=== PATIENT | male | born 1985 | race Caucasian/White ===

== ENCOUNTER → 2019-11-04 09:07 | Outpatient (CLI) | payer OTHER, SELFPAY ==
--- NOTE | 2019-11-04 | DI.MRI.S_ITS ---
PROCEDURE: MR LUMBAR SPINE WO CON INDICATIONS: Low back pain TECHNIQUE: Noncontrast sagittal T1 spin echo and T2 fast echo, sagittal STIR, axial T1 and T2 fast spin echo through the lumbar spine. In cases with scoliosis, additional coronal T2 fast spin echo may be performed. COMPARISON: [facility], MR, LUMBAR SPINE W/O CONTRAST, 01/12/2015, 10:48. [facility], CR, XR LUMBAR SPINE FLEXION EXTENSION, 10/21/2019, 9:28. FINDINGS: Image quality: Excellent. Alignment and Curvature: 5 lumbar type vertebral bodies are present by plain film. There is normal bony alignment. Bone Marrow: Marrow is of normal overall signal. No acute vertebral body compression fractures. Spinal Cord: Conus medullaris terminates at the L1-L2 disc space level. Visualized cord demonstrates normal signal and size. Paraspinous Soft Tissues: No paravertebral masses. L1-L2: Normal appearance. L2-L3: Normal appearance. L3-L4: Normal appearance. L4-L5: Mild facet and ligamentum flavum hypertrophy. No significant canal, nor foraminal stenosis. There is a new small left posterolateral protrusion and annular tear. L5-S1: Mild facet hypertrophy bilaterally. No significant canal, nor foraminal stenosis. IMPRESSION: 1. New left postero-lateral annular tear at L4-L5. This has been associated with back pain. 2. Mild lower lumbar facet and ligamentum flavum hypertrophy. 3. No significant canal, nor foraminal stenosis. Dictated by: Patricia Costello M.D. on 11/04/2019 at 10:27 Approved by: Patricia Costello M.D. on 11/04/2019 at 10:33
== END ==
PROVIDERS: Referring Provider Orthopaedic Surgery Orthopaedic Surgery of the Spine; Visit Provider Orthopaedic Surgery Orthopaedic Surgery of the Spine
DX: M54.5 Low back pain (principal); M51.36 Other intervertebral disc degeneration, lumbar region
CPT/HCPCS: 72148